=== PATIENT | female | born 1990 | race Two or more races ===

== ENCOUNTER 2021-10-06 15:09 | Observation (INO) | payer SELFPAY ==
[~2021-10-06] VITALS: Ht 157.5 cm; Wt 52.2 kg
[2021-10-06] MEDS ORDERED: LACTATED RINGER'S 1,000 ML IV ONE (16:00)
[2021-10-06 17:26] LABS: Urine Bacteria NONE SEEN /hpf (None Seen); Urine Blood Negative /uL (Negative); Urine Specific Gravity 1.011 (1.001-1.035); Urine WBC 146 /hpf (0 - 5)
[2021-10-06 17:31] LABS: Alcohol, Urine < 3.0 mg/dL (0-10); Amphetamine Screen, Urine NEGATIVE (NEGATIVE); Barbiturate Scree,Urine NEGATIVE (NEGATIVE); Benzodiazephine Screen, Urine NEGATIVE (NEGATIVE); Cannabinoid Screen, Urine NEGATIVE (NEGATIVE); Cocaine Screen, Urine NEGATIVE (NEGATIVE); Opiate Scree,Urine NEGATIVE (NEGATIVE); Phencyclidine Screen, Urine NEGATIVE (NEGATIVE)
== END 2021-10-06 18:00 | disposition home or self-care (01) ==
LOC: LDRP 15:09 → UNDOADMOB 15:09 → LDRP 15:35
PROVIDERS: ADMIT Obstetrics & Gynecology; ATTEND Obstetrics & Gynecology
DX: O36.8130 Decreased fetal movements, third trimester, not applicable or unspecified (principal); Z3A.28 28 weeks gestation of pregnancy
CPT/HCPCS: 59025; 76805; 80307; 81001; 94762; 96360; 96361; G0378

== ENCOUNTER 2021-11-21 21:20 | Observation (INO) | payer SELFPAY ==
[~2021-11-21] VITALS: Ht 156 cm; Wt 58.1 kg
[2021-11-21] MEDS ORDERED: LACTATED RINGER'S 1,000 ML IV ONE ×2 (22:45)
[2021-11-21] MEDS ORDERED: ACETAMINOPHEN 325 MG TAB PO ONE (22:45)
[2021-11-21 23:33] LABS: Basophils # (auto) 0 10 ^3/uL (0-0.2); Basophils % (auto) 0.5 % (0.0-2.0); Hematocrit 32.8 % (36.0-46.0); Monocytes # (auto) 0.5 10 ^3/uL (0-1.3)
[2021-11-21 23:35] LABS: Eosinophils # (auto) 0.1 10 ^3/uL (0-0.8); Eosinophils % (auto) 0.7 % (0.0-7.0); Hemoglobin 10.9 g/dL (12.2-16.2); Lymphocytes # (auto) 2.5 10 ^3/uL (0.4-5.4); Lymphocytes % (auto) 31.2 % (10.0-50.0); Mean Corpuscular Hgb Conc. 33.1 g/dL (32.0-36.0); Mean Corpuscular Volume 78.6 fL (80.0-100.0); Monocytes % (auto) 6.1 % (0.0-12.0); Neutrophils # (auto) 4.8 10 ^3/uL (1.6-8.6); Neutrophils % (auto) 61.5 % (37.0-80.0); Red Blood Cells 4.17 10^6/uL (4.0-5.20); White Blood Cell 7.9 10^3/uL (4.4-10.8)
[2021-11-21 23:53] LABS: Albumin 2.3 g/dL (3.4-5.0); BUN/Creatinine Ratio 8.3; Calcium 8.1 mg/dL (8.5-10.1); Potassium 3.4 mmol/L (3.5-5.1)
[2021-11-21 23:56] LABS: Bilirubin, Total 0.2 mg/dL (0.2-1.0); Total Protein 5.8 g/dL (6.4-8.2)
[2021-11-22] MEDS ORDERED: PREN-96 PO (02:57)
== END 2021-11-22 03:20 | disposition home or self-care (01) ==
LOC: LDRP 21:20
PROVIDERS: ADMIT Obstetrics & Gynecology; ATTEND Obstetrics & Gynecology
DX: O21.2 Late vomiting of pregnancy (principal); Z20.822 Contact with and (suspected) exposure to COVID-19; O26.893 Other specified pregnancy related conditions, third trimester; R42 Dizziness and giddiness; R51.9 Headache, unspecified; Z3A.34 34 weeks gestation of pregnancy
CPT/HCPCS: 36415; 59025; 80053; 81002; 85025; 87426; 94760; 96360; 96361; G0378; J7120; 96365

== ENCOUNTER 2021-12-19 19:50 | Observation (INO) | payer SELFPAY ==
[~2021-12-19] VITALS: Ht 157.5 cm; Wt 61.2 kg
[~2021-12-19 19:50] MED LIST: PREN-96 PO
[2021-12-19] MEDS ORDERED: LACTATED RINGER'S 1,000 ML IV ONE (20:30)
[2021-12-19] MEDS ORDERED: LACTATED RINGER'S 1,000 ML IV SCH (20:30)
[2021-12-19] MEDS: TERBUTALINE SULFATE 1 MG/ML 1ML VIAL SC SCH ×2 (20:39→21:12)
[2021-12-19] MEDS ORDERED: NIFEdipine 10 MG CAP PO ONE (21:15)
[2021-12-19] MEDS ORDERED: BETAMETHASONE ACET (30mg/5ml) 5ml Vial 6mg/ml IM ONE (21:15)
== END 2021-12-19 22:26 | disposition home or self-care (01) ==
LOC: LDRP 19:50
PROVIDERS: ADMIT Obstetrics & Gynecology; ATTEND Obstetrics & Gynecology
DX: O62.9 Abnormality of forces of labor, unspecified (principal); O26.893 Other specified pregnancy related conditions, third trimester; N89.8 Other specified noninflammatory disorders of vagina; Z3A.33 33 weeks gestation of pregnancy
CPT/HCPCS: 59025; 76805; 81002; 94760; 96360; 96361; 96372; G0378; J0702; J3105

== ENCOUNTER 2021-12-20 20:41 | Observation (INO) | payer SELFPAY ==
[2021-12-20] MEDS ORDERED: BETAMETHASONE ACET (30mg/5ml) 5ml Vial 6mg/ml IM ONE (21:30)
== END 2021-12-20 22:08 | disposition home or self-care (01) ==
LOC: LDRP 20:41
PROVIDERS: ADMIT Obstetrics & Gynecology; ATTEND Obstetrics & Gynecology
DX: O60.03 Preterm labor without delivery, third trimester (principal); O26.873 Cervical shortening, third trimester; O62.9 Abnormality of forces of labor, unspecified; O26.893 Other specified pregnancy related conditions, third trimester; R51.9 Headache, unspecified; R10.30 Lower abdominal pain, unspecified; Z3A.34 34 weeks gestation of pregnancy
CPT/HCPCS: 59025; 94760; 96372; G0378; J0702

== ENCOUNTER 2021-12-28 11:05 | Observation (INO) | payer MEDICAID ==
[2021-12-28] MEDS ORDERED: TERBUTALINE SULFATE 1 MG/ML 1ML VIAL SC ONE (12:00)
== END 2021-12-28 12:50 | disposition home or self-care (01) ==
LOC: UNDOADMOB 11:05 → LDRP 11:05 → UNDODISOB 12:50
PROVIDERS: ADMIT Obstetrics & Gynecology; ATTEND Obstetrics & Gynecology
DX: O60.03 Preterm labor without delivery, third trimester (principal); Z3A.35 35 weeks gestation of pregnancy
CPT/HCPCS: 59025; 81002; 94760; G0378; J3105; 96372

== ENCOUNTER 2022-01-01 08:03 | Observation (INO) | payer MEDICAID ==
[~2022-01-01] VITALS: Ht 157.5 cm; Wt 59.0 kg
[2022-01-04] MEDS ORDERED: NIF10C PO (12:26)
[2022-01-04] MEDS ORDERED: NIFEdipine 10 MG CAP PO ONE (12:30)
== END 2022-01-04 13:00 | disposition home or self-care (01) ==
LOC: LDRP 01-04 11:54 → UNDOADMOB 01-04 11:54 → LDRP 01-04 12:04 → UNDODISOB 01-04 13:00
PROVIDERS: ADMIT Obstetrics & Gynecology Obstetrics; ATTEND Obstetrics & Gynecology Obstetrics
DX: O60.03 Preterm labor without delivery, third trimester (principal); Z3A.35 35 weeks gestation of pregnancy
CPT/HCPCS: 59025; 81002; 94760; G0378

== ENCOUNTER 2022-01-11 16:00 | Inpatient (IN) | payer MEDICAID ==
[~2022-01-11] VITALS: Ht 157.5 cm; Wt 65.8 kg
[~2022-01-11 16:00] MED LIST changes: +NIF10C PO
[2022-01-11] MEDS ORDERED: LACTATED RINGER'S 1,000 ML IV ONE ×2 (17:15)
[2022-01-11] MEDS ORDERED: TERBUTALINE SULFATE 1 MG/ML 1ML VIAL SC SCH ×2 (17:15→17:30)
[2022-01-11] MEDS ORDERED: LACTATED RINGER'S 1,000 ML IV SCH ×2 (17:15→18:45)
[2022-01-11] MEDS ORDERED: BETAMETHASONE ACET (30mg/5ml) 5ml Vial 6mg/ml IM ONE (17:30)
[2022-01-11] MEDS ORDERED: LIDOCAINE 2%HCL (LOCAL ANESTH.) INJ 10ml MDV IJ PRN (18:45)
[2022-01-11] MEDS ORDERED: DERMOPLAST 60ML BOTTLE TOP PRN (18:45)
[2022-01-11] MEDS ORDERED: PENICILLIN G POT 5MIL/D5 50ML 50 ML IV ONE ×2 (18:45→19:03)
[2022-01-11] MEDS ORDERED: PROMETHAZINE HCL 25 MG/ML 1ML IM PRN (18:45)
[2022-01-11] MEDS ORDERED: PHISODERM TOP SOLN 240ML BTL TOP PRN (18:45)
[2022-01-11] MEDS ORDERED: WITCH HAZEL-GLYCERIN PAD TOP PRN (18:45)
[2022-01-11] MEDS ORDERED: BUTORPHANOL TARTRATE 2 MG/1 ML VIAL IV PRN ×2 (18:45)
[2022-01-11] MEDS ORDERED: PROMETHAZINE HCL 25 MG/ML 1ML IV PRN (18:45)
[2022-01-11 19:20] LABS: Basophils # (auto) 0 10 ^3/uL (0-0.2); Basophils % (auto) 0.5 % (0.0-2.0); Eosinophils # (auto) 0 10 ^3/uL (0-0.8); Eosinophils % (auto) 0.3 % (0.0-7.0); Hematocrit 40.1 % (36.0-46.0); Hemoglobin 13.6 g/dL (12.2-16.2); Lymphocytes # (auto) 2.5 10 ^3/uL (0.4-5.4); Mean Corpuscular Hemoglobin 25.7 pg (28.0-32.0); Mean Corpuscular Hgb Conc. 33.8 g/dL (32.0-36.0); Mean Corpuscular Volume 75.9 fL (80.0-100.0); Monocytes # (auto) 0.3 10 ^3/uL (0-1.3); Monocytes % (auto) 3.5 % (0.0-12.0); Neutrophils # (auto) 5.7 10 ^3/uL (1.6-8.6); Neutrophils % (auto) 66.7 % (37.0-80.0); Nucleated Red Blood Cells % 0.1 %; Red Blood Cells 5.28 10^6/uL (4.0-5.20); Red Cell Distribution Width 14.3 % (11.8-14.3); White Blood Cell 8.5 10^3/uL (4.4-10.8)
[2022-01-11 19:29] LABS: INR 0.89 (0.9-1.15); Partial Thromboplastin Time 28.2 sec (24.6-33.4)
[2022-01-11 19:31] LABS: Albumin 2.6 g/dL (3.4-5.0); BUN/Creatinine Ratio 11.5; Calcium 8.8 mg/dL (8.5-10.1); Potassium 3.9 mmol/L (3.5-5.1)
[2022-01-11 19:40] LABS: Bilirubin, Total 0.5 mg/dL (0.2-1.0); Total Protein 6.5 g/dL (6.4-8.2)
[2022-01-11] MEDS ORDERED: LACT. RINGERS/OXYTOCIN 20UNITS 500 ML IV ONE ×2 (20:00→20:30)
[2022-01-11] MEDS ORDERED: LIDOCAINE 2%HCL (LOCAL ANESTH.) INJ 20ML MDV ONE (22:10)
[2022-01-11] MEDS ORDERED: ONDANSETRON HCL 4 MG/2 ML VIAL IV PRN (22:30)
[2022-01-11] MEDS ORDERED: IBUPROFEN 800 MG TAB PO ONE (22:30)
[2022-01-11 22:45] LABS: Urine Bacteria FEW /hpf (None Seen); Urine Blood 3+ /uL (Negative); Urine Hyaline Cast FEW /lpf (0 - 2); Urine Specific Gravity 1.011 (1.001-1.035); Urine WBC 9 /hpf (0 - 5)
[2022-01-11] MEDS ORDERED: PENICILLIN G POTASSIUM 2,500,000 UNITS in D5W 5% 50 ML IV SCH (22:45)
[2022-01-11 22:53] LABS: Alcohol, Urine < 3.0 mg/dL (0-10); Amphetamine Screen, Urine NEGATIVE (NEGATIVE); Barbiturate Scree,Urine NEGATIVE (NEGATIVE); Benzodiazephine Screen, Urine NEGATIVE (NEGATIVE); Cannabinoid Screen, Urine NEGATIVE (NEGATIVE); Cocaine Screen, Urine NEGATIVE (NEGATIVE); Opiate Scree,Urine NEGATIVE (NEGATIVE); Phencyclidine Screen, Urine NEGATIVE (NEGATIVE)
[2022-01-12 03:30] VITALS: BP 90/50
[2022-01-12] MEDS: ACETAMINOPHEN 325 MG TAB PO PRN ×2 (05:40→15:47)
[2022-01-12 07:30] VITALS: BP 107/59
[2022-01-12 11:30] VITALS: BP 107/59
[2022-01-12] MEDS: IBUPROFEN 600 MG TAB PO PRN ×2 (11:55→19:06)
[2022-01-12 15:10] VITALS: BP 80/45
[2022-01-12 19:30] VITALS: BP 90/58
[2022-01-12 23:00] VITALS: BP 90/56
[2022-01-13 03:00] VITALS: BP 99/62
[2022-01-13 05:06] LABS: RPR Non Reactive (Non Reactive)
[2022-01-13 06:30] VITALS: BP 92/62
[2022-01-13] MEDS: IBUPROFEN 600 MG TAB PO PRN (06:50)
[2022-01-13 10:50] VITALS: BP 93/65
[2022-01-13 11:25] VITALS: BP 93/65
== END 2022-01-13 11:22 | disposition home or self-care (01) | DRG 560 ==
LOC: LDRP 16:00 → OBSVTOIN 18:25 → LDRP 18:26
PROVIDERS: ADMIT Obstetrics & Gynecology; ATTEND Obstetrics & Gynecology
PROC: 10E0XZZ Delivery of Products of Conception, External Approach (ICD-10-PCS; principal; 2022-01-11)
PROC: 0HQ9XZZ Repair Perineum Skin, External Approach (ICD-10-PCS; 2022-01-11)
DX: O69.81X0 Labor and delivery complicated by cord around neck, without compression, not applicable or unspecified (principal); Z37.0 Single live birth; O60.14X0 Preterm labor third trimester with preterm delivery third trimester, not applicable or unspecified; O70.0 First degree perineal laceration during delivery; Z3A.36 36 weeks gestation of pregnancy; Z20.822 Contact with and (suspected) exposure to COVID-19
CPT/HCPCS: 36415; 59025; 59409; 80053; 80307; 81001; 81002; 85025; 85610; 85730; 86592; 86850; 86900; 86901; 87426; 94760; 96360; 96361; 96365; 96366; G0378; J2540; J2590; J7060